=== PATIENT | female | born 1950 | race Hispanic/Latino ===

== ENCOUNTER → 2023-06-12 | Outpatient (CLI) | payer OTHER ==
[~2023-06-12] MED LIST: ASPI-556 PO; ATOR10TA69 PO; PANT40TA54 PO
== END | disposition home or self-care (01) ==
LOC: OIH 07:48
PROVIDERS: ATTEND Internal Medicine Cardiovascular Disease
DX: Z13.6 Encounter for screening for cardiovascular disorders (principal); R93.1 Abnormal findings on diagnostic imaging of heart and coronary circulation
CPT/HCPCS: 75571